=== PATIENT | male | born 1980 | race Caucasian/White ===

== ENCOUNTER 2020-08-17 11:50 | Emergency (ER) | payer OTHER ==
[2020-08-17 13:19] LABS: BILIRUBIN NEGATIVE (NEGATIVE); BLOOD NEGATIVE Ery/uL (NEGATIVE); CLARITY CLEAR (CLEAR); COLOR YELLOW (YELLOW); GLUCOSE (U) NORMAL (NORMAL); LEUKOCYTES NEGATIVE Leu/uL (NEGATIVE); NITRITE NEGATIVE (NEGATIVE); PROTEIN NEGATIVE (NEGATIVE); UROBILINOGEN 0.2 mg/dL (0.2-1.0)
[2020-08-17 13:25] LABS: AMPHETAMINES NEGATIVE (NEGATIVE); BARBITURATES NEGATIVE (NEGATIVE); ECSTASY (MDMA) NEGATIVE (NEGATIVE); MARIJUANA (THC) NEGATIVE (NEGATIVE); METHADONE NEGATIVE (NEGATIVE); OPIATES NEGATIVE (NEGATIVE); OXYCODONE NEGATIVE (NEGATIVE)
[2020-08-17] MEDS ORDERED: VISTARIL25 MG PO (17:43)
== END 2020-08-17 17:59 | disposition home or self-care (01) ==
LOC: FER 11:50
PROVIDERS: Emergency Medicine
DX: F41.1 Generalized anxiety disorder (principal); F17.210 Nicotine dependence, cigarettes, uncomplicated; Z79.899 Other long term (current) drug therapy; Z20.822 Contact with and (suspected) exposure to COVID-19
CPT/HCPCS: 36415; 80305; 81003; 99283; G0480; U0002

== ENCOUNTER 2020-08-21 23:32 | Inpatient (IN) | payer OTHER ==
[~2020-08-21] VITALS: Ht 172.7 cm; Wt 66.7 kg
[~2020-08-21 23:32] MED LIST: VISTARIL25 MG PO
[2020-08-22 04:20] LABS: BILIRUBIN NEGATIVE (NEGATIVE); BLOOD NEGATIVE Ery/uL (NEGATIVE); CLARITY CLEAR (CLEAR); COLOR YELLOW (YELLOW); GLUCOSE (U) NORMAL (NORMAL); LEUKOCYTES NEGATIVE Leu/uL (NEGATIVE); NITRITE NEGATIVE (NEGATIVE); PROTEIN NEGATIVE (NEGATIVE); UROBILINOGEN 0.2 mg/dL (0.2-1.0)
[2020-08-22 04:28] LABS: SQUAMOUS EPITHELIAL CELLS RARE
[2020-08-22 04:55] LABS: AMPHETAMINES NEGATIVE (NEGATIVE); BARBITURATES NEGATIVE (NEGATIVE); ECSTASY (MDMA) NEGATIVE (NEGATIVE); MARIJUANA (THC) NEGATIVE (NEGATIVE); METHADONE NEGATIVE (NEGATIVE); OPIATES NEGATIVE (NEGATIVE); OXYCODONE NEGATIVE (NEGATIVE)
[2020-08-22 08:19] LABS: BASOPHIL 0.5 % (0-2); EOSINOPHIL 1.2 % (0-5); HCT 44.4 % (42.0-52.0); HGB 15.3 g/dl (13.2-18.0); LYMPHOCYTE 22.4 % (15-48); MCH 33.2 pg (25.0-31.0); MCHC 34.5 g/dL (32.0-36.0); MCV 96.3 fL (78.0-100.0); MONOCYTE 16.1 % (0-12); MPV 10.5 fL (6.0-9.5); NEUTROPHIL 59.5 % (41-80); NRBC 0; PLT 232 K/uL (150-400); RBC 4.61 M/uL (4.70-6.00); RDW 13.2 % (11.5-14.0); WBC 7.6 K/uL (4.0-10.5)
[2020-08-22 08:34] LABS: ALBUMIN 4.4 g/dL (3.4-5.0); BILIRUBIN - TOTAL 0.6 mg/dL (0.2-1.0); CREATININE 0.92 mg/dL (0.67-1.17); GLOBULIN (CALCULATION) 3.9 g/dL; POTASSIUM 4.4 mmol/L (3.5-5.1); TOTAL PROTEIN 8.3 g/dL (6.4-8.2)
[2020-08-22 10:55] LABS: MAGNESIUM 2.2 mg/dL (1.8-2.4); PHOSPHORUS 4.1 mg/dL (2.6-4.7)
--- NOTE | 2020-08-22 16:11 | NUR ---
1100- PT SCORED A 13 ON THE CIWA SCORE, PT HAS NO NAUSEA/VOMITTING, NO TREMORS, HIS FACE AND BACK HAS SOME SWEAT VISIBLE, PT DOES NOT HAVE TACTILE, AUDITORY OR VISUAL DISTURBANCES REPORTED WHEN ASKED BUT HAS MADE STATEMNETS LIKE "YOURE TRYING TO KILL ME" "THE MAN FOLLWING ME HERE" AND THAT "HE HAD A CHANGE IN WHAT WAS GOING ON IN THE ROOM". PT IS A POOR HISTORIAN. PT IS VERY ANXIUOS, PULLING AT CLOTH PRINTER, PULSE OX AND IV TUBING, PT YELLED OUT AND HAD THROWN A CUP OF WATER ACROSS THE ROOM WHEN ASSESSED BY THIS RN. PT WAS NOT ORIENTED TO PLACE, TIME/DATE OR SITUATION ONLY TO SELF, PT ONLY KNEW THE MONTH HE WAS BORN AND COULD NOT ANSWER THE DAY OR YEAR. PT STATES THAT HE IS HAVING FLASHBACKS ABOUT THINGS THAT HAPPENED AND WHEN GIVEN IV PROTONIX HE FLINCHED AND PULLED AWAY STATING "IT MAKES HIM NERVOUS."
[2020-08-23 06:22] LABS: BASOPHIL 0.7 % (0-2); HCT 42.2 % (42.0-52.0); HGB 14.4 g/dl (13.2-18.0); MCH 32.7 pg (25.0-31.0); MCHC 34.1 g/dL (32.0-36.0); MCV 95.9 fL (78.0-100.0); MONOCYTE 15.2 % (0-12); MPV 9.8 fL (6.0-9.5); NEUTROPHIL 52.8 % (41-80); NRBC 0; PLT 195 K/uL (150-400); RDW 13.2 % (11.5-14.0); WBC 7.2 K/uL (4.0-10.5)
[2020-08-23 06:55] LABS: ALBUMIN 3.4 g/dL (3.4-5.0); BILIRUBIN - TOTAL 0.4 mg/dL (0.2-1.0); CREATININE 0.82 mg/dL (0.67-1.17); GLOBULIN (CALCULATION) 3.6 g/dL; POTASSIUM 3.8 mmol/L (3.5-5.1)
[2020-08-23] MEDS ORDERED: B-1100 MG PO (09:58)
[2020-08-23] MEDS ORDERED: SEROQUEL 100MG100 MG PO (09:58)
--- NOTE | 2020-08-23 13:06 | NUR ---
DISCHARGE ORDERS RECEIVED. RN CALLED CHRISTIANO CABEZAS [facility]. FACILITY TO SEND TRANSPORT TO GET PT. IV DC'D ALL PAPERWORK GIVEN TO PT INCLUDING SCRIPTS.
--- NOTE | 2020-08-23 13:52 | NUR ---
PT REFUSING TO SIGN DISCHARGE PAPERWORK. PAPERWORK GIVEN TO SENIOR DATA QUALITY ANALYST.
== END 2020-08-23 13:44 | DRG 885 ==
LOC: FER 23:32 → FTCU 08-22 09:03
PROVIDERS: Emergency Medicine; Nurse Practitioner; ADMIT Allergy & Immunology Allergy
DX: F25.9 Schizoaffective disorder, unspecified (principal); F17.290 Nicotine dependence, other tobacco product, uncomplicated; F41.1 Generalized anxiety disorder; S00.12XA Contusion of left eyelid and periocular area, initial encounter; Z20.822 Contact with and (suspected) exposure to COVID-19; F31.9 Bipolar disorder, unspecified; F10.20 Alcohol dependence, uncomplicated
CPT/HCPCS: 36415; 70450; 70486; 72100; 73030; 80053; 80305; 81001; 83735; 84100; 84484; 85025; 93005; 94010; C9113; J2060; J2405; J2560; J7120; U0002

== ENCOUNTER 2020-08-24 11:12 | Emergency (ER) | payer OTHER ==
[~2020-08-24 11:12] MED LIST changes: +B-1100 MG PO; +SEROQUEL 100MG100 MG PO
[2020-08-24 13:43] LABS: BASOPHIL 0.9 % (0-2); EOSINOPHIL 3.7 % (0-5); HCT 41.3 % (42.0-52.0); HGB 13.8 g/dl (13.2-18.0); LYMPHOCYTE 34.9 % (15-48); MCH 32.5 pg (25.0-31.0); MCHC 33.4 g/dL (32.0-36.0); MCV 97.4 fL (78.0-100.0); MONOCYTE 11.4 % (0-12); MPV 9.9 fL (6.0-9.5); NEUTROPHIL 48.9 % (41-80); NRBC 0; PLT 222 K/uL (150-400); RBC 4.24 M/uL (4.70-6.00); RDW 13.2 % (11.5-14.0); WBC 5.9 K/uL (4.0-10.5)
[2020-08-24 14:22] LABS: BUN 8 mg/dL (7-18); CHLORIDE 108 mmol/L (98-107); CO2 (BICARBONATE) 28 mmol/L (21-32); CREATININE 0.89 mg/dL (0.67-1.17); GLUCOSE 118 mg/dL (74-106); POTASSIUM 3.7 mmol/L (3.5-5.1)
[2020-08-24 14:39] LABS: BILIRUBIN NEGATIVE (NEGATIVE); BLOOD NEGATIVE Ery/uL (NEGATIVE); CLARITY CLEAR (CLEAR); COLOR YELLOW (YELLOW); GLUCOSE (U) NORMAL (NORMAL); LEUKOCYTES NEGATIVE Leu/uL (NEGATIVE); NITRITE NEGATIVE (NEGATIVE); PROTEIN NEGATIVE (NEGATIVE); pH 6.5 (5.0-9.0)
== END 2020-08-24 15:05 | disposition home or self-care (01) ==
LOC: FER 11:12
PROVIDERS: Nurse Practitioner Family
DX: F41.9 Anxiety disorder, unspecified (principal); F31.9 Bipolar disorder, unspecified; Z79.899 Other long term (current) drug therapy
CPT/HCPCS: 36415; 80048; 81003; 85025; 99284; G0480